=== PATIENT | female | born 1985 | race Caucasian/White ===

== ENCOUNTER 2017-07-21 10:13 | Emergency (ER) | payer OTHER, SELFPAY ==
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
== END 2017-07-21 12:23 | disposition home or self-care (01) ==
LOC: SCSER 10:13
DX: S30.1XXA Contusion of abdominal wall, initial encounter (principal); S50.01XA Contusion of right elbow, initial encounter; S70.01XA Contusion of right hip, initial encounter; E03.9 Hypothyroidism, unspecified; G47.10 Hypersomnia, unspecified; F41.9 Anxiety disorder, unspecified; G43.909 Migraine, unspecified, not intractable, without status migrainosus; K76.89 Other specified diseases of liver; K42.9 Umbilical hernia without obstruction or gangrene; Z79.899 Other long term (current) drug therapy; V43.62XA Car passenger injured in collision with other type car in traffic accident, initial encounter
CPT/HCPCS: 74177

== ENCOUNTER 2017-07-24 05:48 | Emergency (ER) | payer BC, OTHER, SELFPAY ==
[2017-07-24] MEDS ORDERED: Ondansetron PF 4 MG/2 ML Vial ONE (06:03)
[2017-07-24 06:24] LABS: #Basophils 0.1 thou/uL (0.0-0.2); #Eosinphils 0.3 thou/uL (0.0-0.7); #Lymphocytes 3.8 thou/uL (1.20-3.40); #Monocytes 0.8 thou/uL (0.11-0.59); #Neutrophils 3.3 thou/uL (1.40-6.50); %Basophils 1.4 % (0.0-1.0); %Lymphocytes 45.5 % (21.0-51.0); %Neutrophils 39.2 % (42.0-75.0); Hemoglobin 14.6 g/dL (12.0-16.0); Mean Corpuscular HGB CONC 35.8 g/dL (32.0-36.0); Mean Corpuscular Hemoglobin 32.7 pg (27.0-31.0); Mean Corpuscular Volume 91.2 fl (81.0-99.0); Mean Platelet Volume 5.5 fL (7.4-10.4); Platelet Count 332 thou/uL (130-400); RBC Distribution Width 11.7 % (11.5-14.5); Red Blood Cell (RBC) Count 4.48 mill/uL (4.20-5.40); White Blood Cell (WBC) Count 8.4 thou/uL (4.8-10.8)
[2017-07-24] MEDS ORDERED: Morphine 5 MG/ML SYRINGE ONE (06:25)
[2017-07-24 06:30] LABS: BHCG - Serum Negative (NEGATIVE); Pregs Control Background? CLEAR/WHITE (CLR/WHITE); Pregs Control Bar Appear? YES (CONTROL BAR)
[2017-07-24 06:39] LABS: ALT (SGPT) 20 U/L (8-55); AST (SGOT) 19 U/L (5-34); Albumin 3.8 g/dL (3.5-5.0); Alkaline Phosphatase 42 U/L (40-150); Anion Gap 13 mmol/L (10-20); BUN (Urea Nitrogen) 13 mg/dL (7.0-18.7); Bilirubin, Total 0.4 mg/dL (0.2-1.2); Calc. Creatinine Clearance 0 mL/min (70-130); Calcium 9.1 mg/dL (7.8-10.44); Carbon Dioxide 21 mmol/L (22-29); Chloride 111 mmol/L (98-107); Estimated GFR-MDRD Greater than 90; Globulin 3.3 g/dL (2.4-3.5); Glucose 107 mg/dL (70-105); Lipase 33 U/L (8-78); Potassium 4.1 mmol/L (3.5-5.1); Protein, Total 7.1 g/dL (6.0-8.3); Sodium 141 mmol/L (136-145)
[2017-07-24] MEDS ORDERED: Lidocaine Viscous Sol 2% 15 ml UD Cup ONE (07:49)
[2017-07-24] MEDS ORDERED: Mag-Al Plus 1200 MG/1200 MG/120 MG/30 ML UDCUP ONE (07:49)
--- NOTE | 2017-07-24 07:59 | CT ---
CT OF ABDOMEN AND PELVIS: DATE: 07/24/17. COMPARISON: 07/21/17. HISTORY: Abdominal pain. TECHNIQUE: Serial axial CT imaging at 5 mm intervals from lung bases through pubic symphysis with IV contrast. Coronal reformatted imaging obtained. FINDINGS: Lack of oral contrast limits assessment of the bowel. The imaged lung bases are unremarkable. The p atient is status post cholecystectomy. No free intraperitoneal air. A nonspecific low-density lesion is noted within the lateral aspect of the right lobe of the liver me asuring 1.1 cm, similar when compared to the prior examination. His does not have the appearance of a cyst. There is mild hypodensity in the periportal regions suggesting a mild degree of nonspecific periporta l edema. The pancreas, adrenal glands, spleen, and kidneys appear unremarkable. No evidence for bowel inflammatory change or obstruction. Appendix appears unremarkable. Vascular s tructures are grossly unremarkable with no lymphadenopathy noted within the abdomen or pelvis. The o sseous structures demonstrate no acute findings. IMPRESSION: 1. No evidence for free intraperitoneal air, bowel inflammatory change, bowel obstruction, or append icitis. 2. Findings suggesting nonspecific periportal edema. 3. Low-density lesion within lateral aspect of the right hepatic lobe. This cannot be definitively characterized on this examination. Recommend nonemergent followup abdominal MRI. CODE T POS: [facility]
[2017-07-24] MEDS ORDERED: Famotidine/PF 20 mg/2ml Vial ONE (08:27)
[2017-07-24] MEDS ORDERED: Iopamidol 370 76% 100 ML VIAL ONE (09:00)
== END 2017-07-24 09:27 | disposition home or self-care (01) ==
LOC: SCSER 05:48
DX: K76.89 Other specified diseases of liver (principal); K59.00 Constipation, unspecified; R60.0 Localized edema; E03.9 Hypothyroidism, unspecified; G43.909 Migraine, unspecified, not intractable, without status migrainosus; F41.9 Anxiety disorder, unspecified; Z79.899 Other long term (current) drug therapy
CPT/HCPCS: 74177; 80053; 83690; 84703; 85025; 96361; 96374; 96375; J2270; J2405; S0028

== ENCOUNTER 2017-08-11 12:36 | Outpatient (CLI) | payer BC ==
--- NOTE | 2017-08-11 15:49 | RAD ---
TWO VIEWS RIGHT FEMUR: 08/11/17 HISTORY: Right hip pain. COMPARISON: None available. FINDINGS: There is no evidence of a fracture, dislocation, or other osseous abnormality involving the right hip . IMPRESSION: No acute osseous abnormality. POS: [facility]
--- NOTE | 2017-08-11 15:53 | MRI ---
MRI OF THE ABDOMEN WITHOUT AND WITH CONTRAST 08/11/17 COMPARISON: CT abdomen/pelvis 07/24/17. HISTORY: Low density lesion in the right lobe of the liver on prior imaging. Abdominal pain with history of ch olecystectomy. TECHNIQUE: Multiplanar and multisequence MR images were obtained of the abdomen without and with IV contrast. FINDINGS: The patient is status post cholecystectomy. There is mild prominence of the common bile duct which me asures 7 mm. This is likely a reservoir effect from prior cholecystectomy. No intrahepatic biliary di latation is seen. There is a well circumscribed lesion in the right lobe of the liver measuring 1.4 cm in size. This de monstrates high T2 signal. After the administration of contrast, there is peripheral rim enhancement and this lesion gradually fills in on delayed phase images. On the most delayed images, the liver beg ins to washout and this area is enhancing to a greater extent than the background liver parenchyma. T hese findings are most consistent with a small hemangioma. The kidneys, adrenal glands, spleen, and pancreas are unremarkable. No ascites is seen. No abdominal adenopathy is present. IMPRESSION: The right liver lesion likely represents a small hemangioma. POS: [facility]
== END 2017-08-11 12:37 | disposition home or self-care (01) ==
LOC: SCSMRI 12:36
PROVIDERS: ATTEND Family Medicine
DX: M25.551 Pain in right hip (principal); R93.2 Abnormal findings on diagnostic imaging of liver and biliary tract; K76.89 Other specified diseases of liver
CPT/HCPCS: 74183

== ENCOUNTER 2020-09-05 15:57 | Outpatient (CLI) | payer BC | END 2020-09-05 15:58 | disposition home or self-care (01) | LOC: SCSRAD 15:57 | PROVIDERS: ATTEND Family Medicine | DX: S90.212D Contusion of left great toe with damage to nail, subsequent encounter (principal) ==

== ENCOUNTER 2022-07-29 08:06 | Outpatient (CLI) | payer BC | END 2022-07-29 08:07 | disposition home or self-care (01) | LOC: NM 08:06 | PROVIDERS: ATTEND Internal Medicine Cardiovascular Disease | DX: R00.2 Palpitations (principal) | CPT/HCPCS: 93017 ==